=== PATIENT | female | born 1955 | race Caucasian/White ===

== ENCOUNTER 2019-03-30 14:58 | Outpatient (CLI) | payer OTHER | END 2019-03-30 23:59 | disposition home or self-care (01) | LOC: CFH 14:58 | PROVIDERS: ATTEND Nurse Practitioner | DX: Z12.31 Encounter for screening mammogram for malignant neoplasm of breast (principal); I35.8 Other nonrheumatic aortic valve disorders | CPT/HCPCS: 77063; 77067; 93306 ==